=== PATIENT | female | born 1935 | race Two or more races ===

== ENCOUNTER 2019-09-24 18:54 | Emergency (ER) | payer OTHER ==
[~2019-09-24] VITALS: Ht 162.6 cm; Wt 80.7 kg
[2019-09-24 19:35] LABS: Basophils # (auto) 0 uL; Basophils % (auto) 0.2 % (0.0-2.0); Eosinophils # (auto) 0.1 uL; Eosinophils % (auto) 1.9 % (0.0-7.0); Hematocrit 35.6 % (36.0-46.0); Hemoglobin 11.8 g/dL (12.2-16.2); Lymphocytes # (auto) 0.9 uL; Lymphocytes % (auto) 11.9 % (10.0-50.0); Mean Corpuscular Hgb Conc. 33.2 g/dL (32.0-36.0); Mean Corpuscular Volume 93.2 fL (80.0-100.0); Monocytes # (auto) 0.7 uL; Monocytes % (auto) 8.9 % (0.0-12.0); Neutrophils # (auto) 5.8 uL; Neutrophils % (auto) 77.1 % (37.0-80.0); Platelet Count (auto) 184 10^3/uL (140-450); Red Blood Cells 3.82 10^6/uL (4.0-5.20); Red Cell Distribution Width 14.2 % (11.8-14.3); White Blood Cell 7.6 10^3/uL (4.4-10.8)
[2019-09-24 19:52] LABS: Albumin 3.3 g/dL (3.4-5.0); Anion Gap 8 (5-15); Blood Urea Nitrogen 40 mg/dL (7-18); Calcium 8.4 mg/dL (8.5-10.1); Carbon Dioxide 25 mmol/L (21-32); Chloride 103 mmol/L (98-107); Potassium 4.1 mmol/L (3.5-5.1); Sodium 136 mmol/L (136-145)
[2019-09-24 19:54] LABS: Alanine Aminotransferase 19 U/L (13-56); Aspartate Aminotransferase 40 U/L (15-37); BUN/Creatinine Ratio 18.8; GFR African American 28 mL/min; GFR Non-African American 24 mL/min
[2019-09-24 19:59] LABS: Alkaline Phosphatase 114 U/L (45-117); Bilirubin, Total 0.7 mg/dL (0.2-1.0); Total Protein 7.9 g/dL (6.4-8.2)
[2019-09-24 20:12] LABS: Glucose 36 mg/dL (74-106)
[2019-09-24] MEDS ORDERED: DEXTROSE (50%) 50ML SYRG IV ONE (20:15)
[2019-09-24] MEDS ORDERED: LABETALOL HCL 5 MG/ML ML 20ML VIAL IV ONE (22:00)
[2019-09-25 00:45] VITALS: BP 153/60
== END 2019-09-25 02:42 | disposition home or self-care (01) ==
LOC: ER 18:54
DX: E11.649 Type 2 diabetes mellitus with hypoglycemia without coma (principal); E11.22 Type 2 diabetes mellitus with diabetic chronic kidney disease; I12.9 Hypertensive chronic kidney disease with stage 1 through stage 4 chronic kidney disease, or unspecified chronic kidney disease; N18.9 Chronic kidney disease, unspecified; F03.90 Unspecified dementia, unspecified severity, without behavioral disturbance, psychotic disturbance, mood disturbance, and anxiety; E78.5 Hyperlipidemia, unspecified
CPT/HCPCS: 36415; 70450; 80053; 82010; 82962; 83880; 84484; 85025; 93005; 96374; 96375; 99284; J7042

== ENCOUNTER 2022-02-15 21:45 | Inpatient (IN) | payer OTHER ==
[~2022-02-15] VITALS: Ht 160 cm; Wt 76.7 kg
[2022-02-15 23:39] LABS: Hematocrit 38.9 % (36.0-46.0); Hemoglobin 12.5 g/dL (12.2-16.2); Mean Corpuscular Hemoglobin 24.1 pg (28.0-32.0); Mean Corpuscular Volume 75.3 fL (80.0-100.0); Red Blood Cells 5.17 10^6/uL (4.0-5.20); Red Cell Distribution Width 18.7 % (11.8-14.3); White Blood Cell 5.8 10^3/uL (4.4-10.8)
[2022-02-15 23:46] LABS: Basophils % (manual) 0 (0.0-2.0); Blast Cells 0; Eosinophils % (manual) 0 (0-7); Metamyelocytes % 0; Myelocytes % 0; Promyelocytes % 0; Reactive Lymphocytes 0
[2022-02-15 23:55] LABS: Albumin 2.6 g/dL (3.4-5.0); Calcium 9.1 mg/dL (8.5-10.1); Potassium 4.8 mmol/L (3.5-5.1)
[2022-02-16] LABS: Bilirubin, Total 2.4 mg/dL (0.2-1.0); Total Protein 6.9 g/dL (6.4-8.2)
[2022-02-16 00:37] LABS: Band Neutrophils % (manual) 3; Lymphocytes % (manual) 11 (10.0-50.0); Monocytes % (manual) 5 (0-12)
[2022-02-16] MEDS ORDERED: FUROSEMIDE 20 MG/2 ML VIAL IV ONE (04:15)
[2022-02-16] MEDS ORDERED: MORPHINE SULFATE INJECTION 2 MG/ML SYRG IV PRN (06:30)
[2022-02-16] MEDS ORDERED: DEXTROSE (50%) 50ML SYRG IV PRN (06:30)
[2022-02-16] MEDS ORDERED: NITROGLYCERIN 0.4 MG SL TAB SL PRN (06:30)
[2022-02-16] MEDS ORDERED: ONDANSETRON HCL 4 MG/2 ML VIAL IV PRN (06:30)
[2022-02-16] MEDS: amLODIPine BESYLATE 5 MG TAB PO SCH (10:00)
[2022-02-16 10:15] VITALS: BP 132/34
[2022-02-16] MEDS ORDERED: ALLO100T PO (11:21)
[2022-02-16] MEDS ORDERED: ASPI-543 PO (11:21)
[2022-02-16] MEDS ORDERED: ATOR10TA52 PO (11:21)
[2022-02-16] MEDS ORDERED: ATEN50TA PO (11:21)
[2022-02-16] MEDS ORDERED: DONE1TAB88 PO (11:21)
[2022-02-16] MEDS ORDERED: CARV25TA55 PO (11:21)
[2022-02-16] MEDS ORDERED: SODI10PA PO (11:21)
[2022-02-16] MEDS ORDERED: HYDR25TA5 PO (11:21)
[2022-02-16] MEDS: InsuLIN REG 1unit/0.01ml Soln (100units/ml) SC SCH ×2 (12:00→17:52)
[2022-02-16] MEDS: ASPirin 81 mg TAB PO SCH (12:39)
[2022-02-16] MEDS: ACCU-CHEK COMFORT CURVE STRIP VI SCH ×2 (12:46→17:52)
[2022-02-16] MEDS: HEPARIN SODIUM (PORCINE) 5000 UNITS/ML 1ML VIAL SC SCH ×2 (12:56→21:13)
[2022-02-16 13:00] VITALS: BP 113/29
[2022-02-16 14:55] LABS: INR 1.22 (0.9-1.15); Partial Thromboplastin Time 26.7 sec (23.6-33.0)
[2022-02-16 17:00] VITALS: BP 109/28
[2022-02-16] MEDS ORDERED: FUROSEMIDE 40 MG/4 ML VIAL IV ONE (18:45)
[2022-02-16 22:00] VITALS: BP_SYST 118; BP_SYST 160; BP_DIAS 52; BP_DIAS 79
[2022-02-16] MEDS ORDERED: ATORVASTATIN 20 MG TAB PO SCH (22:00)
[2022-02-17] MEDS: ACCU-CHEK COMFORT CURVE STRIP VI SCH ×4 (00:07→18:23)
[2022-02-17] MEDS: FUROSEMIDE 40 MG/4 ML VIAL IV SCH ×2 (05:35→18:00)
[2022-02-17] MEDS: InsuLIN REG 1unit/0.01ml Soln (100units/ml) SC SCH ×4 (05:36→18:00)
[2022-02-17 06:12] LABS: Hematocrit 38.4 % (36.0-46.0); Mean Corpuscular Hemoglobin 24.1 pg (28.0-32.0); Mean Corpuscular Hgb Conc. 31.3 g/dL (32.0-36.0); Red Blood Cells 4.99 10^6/uL (4.0-5.20); Red Cell Distribution Width 19.3 % (11.8-14.3); White Blood Cell 8.2 10^3/uL (4.4-10.8)
[2022-02-17 06:46] LABS: Basophils % (manual) 0 (0.0-2.0); Blast Cells 0; Metamyelocytes % 0; Myelocytes % 0; Promyelocytes % 0; Reactive Lymphocytes 0
[2022-02-17] MEDS ORDERED: SODIUM CHL 0.9% 1000 ML BAG XX ONE (07:00)
[2022-02-17 07:10] LABS: Band Neutrophils % (manual) 5; Eosinophils % (manual) 2 (0-7); Lymphocytes % (manual) 5 (10.0-50.0); Monocytes % (manual) 7 (0-12)
[2022-02-17] MEDS: amLODIPine BESYLATE 5 MG TAB PO SCH (09:42)
[2022-02-17] MEDS: ASPirin 81 mg TAB PO SCH (09:42)
[2022-02-17] MEDS: HEPARIN SODIUM (PORCINE) 5000 UNITS/ML 1ML VIAL SC SCH ×2 (09:42→21:13)
[2022-02-17 09:59] LABS: Albumin 2.2 g/dL (3.4-5.0); Calcium 8.7 mg/dL (8.5-10.1); Potassium 4.8 mmol/L (3.5-5.1)
[2022-02-17 10:02] LABS: BUN/Creatinine Ratio 10.6; Bilirubin, Total 2.1 mg/dL (0.2-1.0); Total Protein 6.2 g/dL (6.4-8.2)
[2022-02-17] MEDS ORDERED: LIDOCAINE 2%HCL (LOCAL ANESTH.) INJ 10ml MDV ONE (10:44)
[2022-02-17] MEDS ORDERED: HEPARIN SODIUM (PORCINE) 5000 UNITS/ML 1ML VIAL ONE (10:45)
[2022-02-17] MEDS ORDERED: fentaNYL CITRATE 100 MCG/2 ML VL ONE (10:45)
[2022-02-17] MEDS ORDERED: MIDAZOLAM HCL 2MG/2ML 2ml VIAL (1mg/ml) ONE (10:45)
[2022-02-17 11:20] VITALS: BP 104/29
[2022-02-17 11:35] VITALS: BP 90/32
[2022-02-17 11:50] VITALS: BP 93/33
[2022-02-17 13:00] VITALS: BP 104/39
[2022-02-17] MEDS ORDERED: ALBUMIN 25% 50 ML IV SCH (13:30)
[2022-02-17] MEDS: MIDODRINE HCL 10 MG TAB PO SCH ×2 (13:35→21:12)
[2022-02-17 17:00] VITALS: BP 118/47
[2022-02-17 23:47] VITALS: BP 121/46
[2022-02-18] MEDS: ACCU-CHEK COMFORT CURVE STRIP VI SCH ×5 (00:07→23:01)
[2022-02-18 05:00] VITALS: BP 119/41
[2022-02-18] MEDS: InsuLIN REG 1unit/0.01ml Soln (100units/ml) SC SCH ×5 (05:23→23:02)
[2022-02-18] MEDS: FUROSEMIDE 40 MG/4 ML VIAL IV SCH ×2 (05:29→17:58)
[2022-02-18] MEDS: MIDODRINE HCL 10 MG TAB PO SCH ×3 (05:29→22:11)
[2022-02-18 07:57] LABS: Anion Gap 17 (5-15); Carbon Dioxide 19 mmol/L (21-32); Chloride 101 mmol/L (98-107); Potassium 4.7 mmol/L (3.5-5.1); Sodium 137 mmol/L (136-145)
[2022-02-18 07:58] LABS: BUN/Creatinine Ratio 8.7; Blood Urea Nitrogen 58 mg/dL (7-18); Calcium 8.3 mg/dL (8.5-10.1); GFR African American 8 mL/min; GFR Non-African American 6 mL/min; Glucose 87 mg/dL (74-106)
[2022-02-18 09:00] VITALS: BP 115/50
[2022-02-18] MEDS: amLODIPine BESYLATE 5 MG TAB PO SCH (10:00)
[2022-02-18] MEDS: HEPARIN SODIUM (PORCINE) 5000 UNITS/ML 1ML VIAL SC SCH ×2 (10:09→22:12)
[2022-02-18] MEDS: ASPirin 81 mg TAB PO SCH (10:09)
[2022-02-18] MEDS ORDERED: LEVALBUTEROL HCL 1.25 MG/3 ML NEB ONE (11:27)
[2022-02-18 13:00] VITALS: BP 133/54
[2022-02-18 17:00] VITALS: BP 121/50
[2022-02-18] MEDS: Nepro With Carbsteady ButterPecan 8oz Carton PO SCH (18:36)
[2022-02-18 22:00] VITALS: BP 126/27
[2022-02-19 05:00] VITALS: BP 130/36
[2022-02-19] MEDS: MIDODRINE HCL 10 MG TAB PO SCH ×3 (05:27→21:29)
[2022-02-19] MEDS: ACCU-CHEK COMFORT CURVE STRIP VI SCH ×4 (05:27→23:56)
[2022-02-19] MEDS: FUROSEMIDE 40 MG/4 ML VIAL IV SCH ×2 (05:27→17:53)
[2022-02-19 05:47] LABS: Potassium 4.5 mmol/L (3.5-5.1)
[2022-02-19] MEDS: InsuLIN REG 1unit/0.01ml Soln (100units/ml) SC SCH ×4 (05:48→23:56)
[2022-02-19 06:11] LABS: Calcium 8.5 mg/dL (8.5-10.1)
[2022-02-19] MEDS ORDERED: SODIUM CHL 0.9% 1000 ML BAG XX ONE (07:00)
[2022-02-19] MEDS ORDERED: ALBUMIN 25% 100 ML IV ONE (08:45)
[2022-02-19] MEDS: Nepro With Carbsteady ButterPecan 8oz Carton PO SCH ×3 (08:49→17:54)
[2022-02-19] MEDS: amLODIPine BESYLATE 5 MG TAB PO SCH (09:54)
[2022-02-19] MEDS: ASPirin 81 mg TAB PO SCH (13:23)
[2022-02-19] MEDS: HEPARIN SODIUM (PORCINE) 5000 UNITS/ML 1ML VIAL SC SCH ×2 (13:25→21:28)
[2022-02-19] MEDS ORDERED: EPOETIN ALFA-EPBX 4,000 UNIT/ML VIAL SC ONE (21:00)
[2022-02-19 22:00] VITALS: BP 147/48
[2022-02-20 05:00] VITALS: BP 128/42
[2022-02-20 05:45] LABS: Calcium 8.2 mg/dL (8.5-10.1); Potassium 3.6 mmol/L (3.5-5.1)
[2022-02-20] MEDS: MIDODRINE HCL 10 MG TAB PO SCH ×3 (05:52→21:44)
[2022-02-20] MEDS: ACCU-CHEK COMFORT CURVE STRIP VI SCH ×4 (05:52→23:45)
[2022-02-20] MEDS: FUROSEMIDE 40 MG/4 ML VIAL IV SCH ×2 (05:52→18:11)
[2022-02-20] MEDS: InsuLIN REG 1unit/0.01ml Soln (100units/ml) SC SCH ×4 (06:11→23:45)
[2022-02-20 08:00] VITALS: BP 123/41
[2022-02-20] MEDS: Nepro With Carbsteady ButterPecan 8oz Carton PO SCH ×3 (08:00→18:00)
[2022-02-20 09:00] VITALS: BP 123/41
[2022-02-20] MEDS: ASPirin 81 mg TAB PO SCH (10:13)
[2022-02-20] MEDS: amLODIPine BESYLATE 5 MG TAB PO SCH (10:13)
[2022-02-20] MEDS: HEPARIN SODIUM (PORCINE) 5000 UNITS/ML 1ML VIAL SC SCH ×2 (10:20→22:08)
[2022-02-20 13:00] VITALS: BP 134/46
[2022-02-20 13:39] LABS: Hepatitis C Antibody Negative (Negative)
[2022-02-20 13:42] LABS: Hepatitis B Surface Antibody Negative (Negative)
[2022-02-20 17:00] VITALS: BP 122/30
[2022-02-20 22:00] VITALS: BP 139/44
[2022-02-21 05:00] VITALS: BP 158/65
[2022-02-21] MEDS: InsuLIN REG 1unit/0.01ml Soln (100units/ml) SC SCH ×4 (05:32→23:38)
[2022-02-21] MEDS: ACCU-CHEK COMFORT CURVE STRIP VI SCH ×4 (05:33→23:37)
[2022-02-21] MEDS: FUROSEMIDE 40 MG/4 ML VIAL IV SCH ×2 (05:36→18:00)
[2022-02-21] MEDS: MIDODRINE HCL 10 MG TAB PO SCH ×4 (05:37→21:32)
[2022-02-21 06:57] LABS: Potassium 3.7 mmol/L (3.5-5.1)
[2022-02-21] MEDS ORDERED: SODIUM CHL 0.9% 1000 ML BAG XX ONE (07:00)
[2022-02-21 07:10] LABS: Albumin 2.4 g/dL (3.4-5.0); BUN/Creatinine Ratio 8.5; Calcium 8.7 mg/dL (8.5-10.1)
[2022-02-21 07:13] LABS: Total Protein 5.8 g/dL (6.4-8.2)
[2022-02-21] MEDS: Nepro With Carbsteady ButterPecan 8oz Carton PO SCH ×3 (07:48→18:00)
[2022-02-21 08:00] VITALS: BP 123/39
[2022-02-21 09:05] VITALS: BP 123/39
[2022-02-21] MEDS: amLODIPine BESYLATE 5 MG TAB PO SCH (10:00)
[2022-02-21] MEDS: ASPirin 81 mg TAB PO SCH (10:00)
[2022-02-21] MEDS: HEPARIN SODIUM (PORCINE) 5000 UNITS/ML 1ML VIAL SC SCH ×2 (10:00→21:32)
[2022-02-21 13:00] VITALS: BP 132/39
[2022-02-21] MEDS ORDERED: ALBUMIN 25% 100 ML IV PRN (13:00)
[2022-02-21 16:46] VITALS: BP 134/48
[2022-02-21 22:00] VITALS: BP_SYST 118; BP_SYST 135; BP_DIAS 40; BP_DIAS 47
[2022-02-22 05:00] VITALS: BP 123/45
[2022-02-22] MEDS: MIDODRINE HCL 10 MG TAB PO SCH ×3 (05:32→23:16)
[2022-02-22] MEDS: FUROSEMIDE 40 MG/4 ML VIAL IV SCH ×3 (05:32→18:00)
[2022-02-22] MEDS: ACCU-CHEK COMFORT CURVE STRIP VI SCH ×2 (05:33→12:00)
[2022-02-22] MEDS: InsuLIN REG 1unit/0.01ml Soln (100units/ml) SC SCH ×3 (06:13→18:00)
[2022-02-22 09:00] VITALS: BP 134/46
[2022-02-22] MEDS: Nepro With Carbsteady ButterPecan 8oz Carton PO SCH ×3 (10:01→18:19)
[2022-02-22] MEDS: ASPirin 81 mg TAB PO SCH (10:01)
[2022-02-22] MEDS: amLODIPine BESYLATE 5 MG TAB PO SCH (10:02)
[2022-02-22] MEDS: HEPARIN SODIUM (PORCINE) 5000 UNITS/ML 1ML VIAL SC SCH ×2 (10:02→22:00)
[2022-02-22 13:05] VITALS: BP 104/43
[2022-02-22 17:00] VITALS: BP 110/35
[2022-02-22] MEDS ORDERED: LORazepam 2MG/ML-1ML VIAL IV PRN (21:45)
[2022-02-22] MEDS: DONEPEZIL HYDROCHLORIDE 5 MG TAB PO SCH (23:16)
[2022-02-22 23:33] LABS: Cholesterol 181 mg/dL (< 200)
[2022-02-22 23:36] LABS: HDL Cholesterol 10 mg/dL (40-59); LDL Cholesterol 140 mg/dL (< 100); Triglycerides 131 mg/dL (< 150)
[2022-02-22 23:41] LABS: Folate (Folic Acid) 6.82 ng/mL (5.38-24)
[2022-02-23] MEDS: ACCU-CHEK COMFORT CURVE STRIP VI SCH ×4 (00:20→18:07)
[2022-02-23] MEDS ORDERED: ACETAMINOPHEN 325 MG TAB PO PRN (00:30)
[2022-02-23] MEDS: InsuLIN REG 1unit/0.01ml Soln (100units/ml) SC SCH ×4 (00:35→17:41)
[2022-02-23 05:00] VITALS: BP 164/48
[2022-02-23 05:49] LABS: Monocytes # (auto) 0.9 10 ^3/uL (0-1.3); Neutrophils # (auto) 10.4 10 ^3/uL (1.6-8.6)
[2022-02-23 05:53] LABS: Basophils # (auto) 0 10 ^3/uL (0-0.2); Basophils % (auto) 0.3 % (0.0-2.0); Eosinophils # (auto) 0.2 10 ^3/uL (0-0.8); Eosinophils % (auto) 1.8 % (0.0-7.0); Hematocrit 33.4 % (36.0-46.0); Hemoglobin 10.6 g/dL (12.2-16.2); Lymphocytes # (auto) 0.5 10 ^3/uL (0.4-5.4); Lymphocytes % (auto) 4.2 % (10.0-50.0); Mean Corpuscular Hemoglobin 23.9 pg (28.0-32.0); Mean Corpuscular Hgb Conc. 31.6 g/dL (32.0-36.0); Mean Corpuscular Volume 75.5 fL (80.0-100.0); Monocytes % (auto) 7.7 % (0.0-12.0); Red Blood Cells 4.43 10^6/uL (4.0-5.20); Red Cell Distribution Width 19.9 % (11.8-14.3); White Blood Cell 12.1 10^3/uL (4.4-10.8)
[2022-02-23 05:54] LABS: Potassium 4.2 mmol/L (3.5-5.1)
[2022-02-23] MEDS: MIDODRINE HCL 10 MG TAB PO SCH ×3 (06:00→22:00)
[2022-02-23 06:03] LABS: Nucleated Red Blood Cells % 4.3 %
[2022-02-23 06:07] LABS: Albumin 2.4 g/dL (3.4-5.0); BUN/Creatinine Ratio 12.2; Calcium 8.3 mg/dL (8.5-10.1); Magnesium 2.5 mg/dL (1.6-2.6); Phosphorus 2.3 mg/dL (2.5-4.90); Total Protein 5.7 g/dL (6.4-8.2)
[2022-02-23] MEDS: FUROSEMIDE 40 MG/4 ML VIAL IV SCH ×2 (06:49→17:40)
[2022-02-23] MEDS ORDERED: SODIUM CHL 0.9% 1000 ML BAG XX ONE (07:00)
[2022-02-23] MEDS: Nepro With Carbsteady ButterPecan 8oz Carton PO SCH ×3 (08:00→17:41)
[2022-02-23 09:00] VITALS: BP 114/46
[2022-02-23] MEDS: HEPARIN SODIUM (PORCINE) 5000 UNITS/ML 1ML VIAL SC SCH ×2 (10:00→22:00)
[2022-02-23] MEDS: ASPirin 81 mg TAB PO SCH (10:00)
[2022-02-23 13:00] VITALS: BP 109/49
[2022-02-23] MEDS ORDERED: SODIUM PHOSPHATES 20 MEQ in SODIUM CHL 0.9% 100 ML IV ONE (14:30)
[2022-02-23 17:00] VITALS: BP 127/62
[2022-02-23] MEDS ORDERED: MORPHINE SULFATE INJECTION 2 MG/ML SYRG IV PRN (20:45)
[2022-02-23 21:58] VITALS: BP 116/52
[2022-02-23] MEDS: DONEPEZIL HYDROCHLORIDE 5 MG TAB PO SCH (22:00)
[2022-02-24] MEDS: InsuLIN REG 1unit/0.01ml Soln (100units/ml) SC SCH
[2022-02-24] MEDS: ACCU-CHEK COMFORT CURVE STRIP VI SCH (00:11)
[2022-02-24 04:42] VITALS: BP 53/22
== END 2022-02-24 04:00 | DRG 291 ==
LOC: ER 21:52 → TELE 02-16 06:19 → TELE-WESTW 02-16 09:58
PROVIDERS: ADMIT Nurse Practitioner; ATTEND Internal Medicine Geriatric Medicine
PROC: 0JH63XZ Insertion of Tunneled Vascular Access Device into Chest Subcutaneous Tissue and Fascia, Percutaneous Approach (ICD-10-PCS; principal; 2022-02-17)
PROC: 02H633Z Insertion of Infusion Device into Right Atrium, Percutaneous Approach (ICD-10-PCS; 2022-02-17)
PROC: B518YZA Fluoroscopy of Superior Vena Cava using Other Contrast, Guidance (ICD-10-PCS; 2022-02-17)
PROC: B548ZZA Ultrasonography of Superior Vena Cava, Guidance (ICD-10-PCS; 2022-02-17)
PROC: 5A1D70Z Performance of Urinary Filtration, Intermittent, Less than 6 Hours Per Day (ICD-10-PCS; 2022-02-17)
PROC: 5A1D70Z Performance of Urinary Filtration, Intermittent, Less than 6 Hours Per Day (ICD-10-PCS; 2022-02-19)
PROC: 5A1D70Z Performance of Urinary Filtration, Intermittent, Less than 6 Hours Per Day (ICD-10-PCS; 2022-02-21)
PROC: 5A1D70Z Performance of Urinary Filtration, Intermittent, Less than 6 Hours Per Day (ICD-10-PCS; 2022-02-23)
DX: I13.2 Hypertensive heart and chronic kidney disease with heart failure and with stage 5 chronic kidney disease, or end stage renal disease (principal); N18.6 End stage renal disease; E43 Unspecified severe protein-calorie malnutrition; I63.9 Cerebral infarction, unspecified; G93.41 Metabolic encephalopathy; I50.43 Acute on chronic combined systolic (congestive) and diastolic (congestive) heart failure; G81.94 Hemiplegia, unspecified affecting left nondominant side; N17.9 Acute kidney failure, unspecified; E83.39 Other disorders of phosphorus metabolism; Z66 Do not resuscitate; R00.1 Bradycardia, unspecified; F03.90 Unspecified dementia, unspecified severity, without behavioral disturbance, psychotic disturbance, mood disturbance, and anxiety; E88.09 Other disorders of plasma-protein metabolism, not elsewhere classified; E87.5 Hyperkalemia; H40.9 Unspecified glaucoma; Z20.822 Contact with and (suspected) exposure to COVID-19; D63.1 Anemia in chronic kidney disease; E11.22 Type 2 diabetes mellitus with diabetic chronic kidney disease; E78.5 Hyperlipidemia, unspecified; Z68.27 Body mass index [BMI] 27.0-27.9, adult; Z79.899 Other long term (current) drug therapy; Z80.0 Family history of malignant neoplasm of digestive organs; Z80.6 Family history of leukemia; Z80.7 Family history of other malignant neoplasms of lymphoid, hematopoietic and related tissues; Z81.8 Family history of other mental and behavioral disorders; Z82.49 Family history of ischemic heart disease and other diseases of the circulatory system; Z83.3 Family history of diabetes mellitus; Z99.2 Dependence on renal dialysis
CPT/HCPCS: 36415; 36558; 70450; 71045; 76775; 76942; 77001; 80048; 80053; 80061; 82553; 82607; 82746; 82962; 83735; 83880; 84100; 84443; 84484; 85007; 85025; 85027; 85610; 85730; 86704; 86706; 86803; 87340; 90935; 93005; 93306; 93886; 96374; 99152; G0378; J1642; J1815; J2001; J2250; J2405; P9047